=== PATIENT | male | born 2000 | race Caucasian/White ===

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

== ENCOUNTER 2019-06-03 00:36 | Emergency (ER) | payer SELFPAY ==
[~2019-06-03] VITALS: Ht 165.1 cm; Wt 63.6 kg
[2019-06-03 01:16] VITALS: BP 107/60
== END 2019-06-03 01:30 | disposition left against medical advice (07) ==
LOC: EMS 00:37
DX: Z53.21 Procedure and treatment not carried out due to patient leaving prior to being seen by health care provider (principal)

== ENCOUNTER 2021-01-29 20:00 | Emergency (ER) | payer MEDICAID ==
[~2021-01-29] VITALS: Ht 165.1 cm; Wt 59.1 kg
[2021-01-29] MEDS ORDERED: KETOROLAC TROMETHAMINE 30 MG/ML VIAL IM ONE (22:30)
[2021-01-29] MEDS ORDERED: PERTUSS(ACELL),DIPH,TET VAC/PF 0.5 ML SYRINGE IM. ONE (22:30)
[2021-01-30 00:30] VITALS: BP 127/65
== END 2021-01-30 00:53 | disposition home or self-care (01) ==
LOC: EMS 20:06
DX: S01.01XA Laceration without foreign body of scalp, initial encounter (principal); F17.210 Nicotine dependence, cigarettes, uncomplicated; F12.90 Cannabis use, unspecified, uncomplicated; F15.90 Other stimulant use, unspecified, uncomplicated; W19.XXXA Unspecified fall, initial encounter; Y93.89 Activity, other specified; Y92.89 Other specified places as the place of occurrence of the external cause; Y99.8 Other external cause status
CPT/HCPCS: 90471; 90715; 96372; 99284; J1885